=== PATIENT | male | born 1980 | race Two or more races ===

== ENCOUNTER 2018-04-24 08:34 | Emergency (ER) | payer SELFPAY ==
[2018-04-24] MEDS ORDERED: LIDOCAINE 1% INJ-PF (10 MG/ML) 30 ML SDV INJ ONE (08:54)
[2018-04-24] MEDS ORDERED: DIPH/PERTUSS(ACELL)/TETANUS VAC/PF 0.5 ML SYR (>=10YO) IM ONE (08:55)
--- NOTE | 2018-04-24 08:55 | ER Document Report ---
ED Wound - General Chief Complaint: Laceration Stated Complaint: FINGER LACERATION Time Seen by Provider: 04/24/18 08:46 Mode of Arrival: Ambulatory Information source: Patient Notes: Patient is a 37-year-old male who presents to the ER today for a laceration to his right index finger after he was handling some pieces of aluminum today and accidentally sliced his finger. He does not know when his last tetanus was, bleeding is controlled at this time, he has full range of motion of the finger and but admits to some numbness to the finger. TRAVEL OUTSIDE OF THE [place] IN LAST 30 DAYS: No - Related Data Allergies/Adverse Reactions: No Known Allergies Allergy (Unverified 04/24/18 08:35) Past Medical History - General Information source: Patient - Social History Smoking Status: Current Every Day Smoker Family History: Reviewed & Not Pertinent Review of Systems - Review of Systems Constitutional: No symptoms reported EENT: No symptoms reported Cardiovascular: No symptoms reported Respiratory: No symptoms reported Gastrointestinal: No symptoms reported Genitourinary: No symptoms reported Male Genitourinary: No symptoms reported Musculoskeletal: No symptoms reported Skin: See HPI Hematologic/Lymphatic: No symptoms reported Neurological/Psychological: No symptoms reported Physical Exam - Vital signs Vitals: Temp Pulse Resp BP Pulse Ox 97.8 F 71 16 136/68 H 100 04/24/18 08:39 04/24/18 08:39 04/24/18 08:39 04/24/18 08:39 04/24/18 08:39 - Notes Notes: PHYSICAL EXAMINATION: GENERAL: Well-appearing and in no acute distress. HEAD: Atraumatic, normocephalic. EYES: Pupils equal round and reactive to light, extraocular movements intact, sclera anicteric, conjunctiva are normal. NECK: Normal range of motion, supple without lymphadenopathy LUNGS: CTAB and equal. No wheezes rales or rhonchi. HEART: Regular rate and rhythm without murmurs EXTREMITIES: Full range of motion of the right index finger, normal sensation, normal range of motion, no pitting edema. No cyanosis. NEUROLOGICAL: Cranial nerves grossly intact. Normal sensory/motor exams. PSYCH: Normal mood, normal affect. SKIN: Warm, Dry, normal turgor, 3 cm laceration to the volar surface of the right index finger, no active bleeding, tendon visualized but not cut Course - Re-evaluation Re-evalutation: 04/24/18 10:11 Laceration sutured successfully, hemostasis achieved, 9 stitches were placed, patient to return in 7 days for suture removal, placed on Keflex for prophylaxis and updated on tetanus today. - Vital Signs Vital signs: Temp Pulse Resp BP Pulse Ox 97.8 F 57 L 16 127/84 H 100 04/24/18 10:52 04/24/18 10:52 04/24/18 10:52 04/24/18 10:52 04/24/18 10:52 Procedures - Laceration/Wound Repair Right Finger 2nd digit Time completed: 10:11 Wound length (cm): 3 Wound's Depth, Shape: Superficial, Linear Laceration pre-procedure: Sterile PPE donned, Betadine prep applied, Sterile drapes applied Anesthetic type: 1% Lidocaine Volume Anesthetic (mLs): 4 Wound explored: Clean Irrigated w/ Saline (mLs): 50 Wound Repaired With: Sutures Suture Size/Type: 5:0, Ethilon Layer Closure?: No Post-procedure wound care: Sterile dressing applied Post-procedure NV exam normal: Yes Complications: No Discharge - Discharge Clinical Impression: Laceration of right index finger Qualifiers: Encounter type: initial encounter Damage to nail status: without damage Foreign body presence: without foreign body Qualified Code(s): S61.210A - Laceration without foreign body of right index finger without damage to nail, initial encounter Condition: Stable Disposition: HOME, SELF-CARE Instructions: Laceration Care ([facility]), Prophylactic Antibiotic ([facility]), Soap Cleansing ([facility]), Tetanus Immunization Given ([facility]) Additional Instructions: Please be seen in 7 days for suture removal. Return immediately for any new or worsening symptoms. Follow up with primary care provider, call tomorrow to make followup appointment.
[2018-04-24 10:58] VITALS: BP 127/84
== END 2018-04-24 10:57 | disposition home or self-care (01) ==
LOC: ER 08:34
DX: S61.210A Laceration without foreign body of right index finger without damage to nail, initial encounter (principal); W45.8XXA Other foreign body or object entering through skin, initial encounter; Y93.H3 Activity, building and construction; F17.200 Nicotine dependence, unspecified, uncomplicated; Z23 Encounter for immunization
CPT/HCPCS: 99282; 90471; 90715; 12002; J3490